=== PATIENT | male | born 1965 | race American Indian/Alaskan Native ===

== ENCOUNTER 2021-04-02 06:42 | Emergency (ER) | payer MEDICARE ==
[2021-04-02] MEDS ORDERED: IPRATROPIUM/ALBUTEROL SULFATE 3 ML AMPUL.NEB IH ONE ×2 (07:21→07:49)
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
[2021-04-02 08:43] VITALS: BP 155/86
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
== END 2021-04-02 12:42 | disposition home or self-care (01) ==
LOC: ED 06:42
DX: T59.811A Toxic effect of smoke, accidental (unintentional), initial encounter (principal); I13.2 Hypertensive heart and chronic kidney disease with heart failure and with stage 5 chronic kidney disease, or end stage renal disease; N18.6 End stage renal disease; I50.9 Heart failure, unspecified; Y92.032 Bedroom in apartment as the place of occurrence of the external cause
CPT/HCPCS: 71045; 94640; 94644; 99283